=== PATIENT | female | born 1985 | race Caucasian/White ===

== ENCOUNTER 2021-04-16 10:07 | Inpatient (IN) ==
[2021-04-16] MEDS ORDERED: Ringers Solution, Lactated 1,000 ML IVC ONE (10:41)
[2021-04-16] MEDS ORDERED: Metoclopramide 10 MG/2 ML VIAL IVP ONE (10:41)
[2021-04-16] MEDS ORDERED: CeFAZolin 2,000MG/50ML DUPLEX 2,000 MG/50 ML BAG IVPB ONE (10:41)
[2021-04-16] MEDS ORDERED: Oxytocin 20 units/ LR 1000 mL 20 UNIT/1,000 ML BAG IVC ONE ×2 (10:41→15:18)
[2021-04-16] MEDS ORDERED: Famotidine 20 MG/2 ML VIAL IVP ONE (10:41)
[2021-04-16] MEDS ORDERED: Ringers Solution, Lactated 1,000 ML IVC SCH (10:45)
[2021-04-16] MEDS ORDERED: Azithromycin 500 MG in 0.9 % Sodium Chloride 250 ML IVPB ONE (10:45)
[2021-04-16] MEDS ORDERED: Ondansetron 4 MG/2 ML VIAL IVP PRN ×3 (10:45→15:55)
[2021-04-16] MEDS ORDERED: Naloxone 0.4 MG/ML INJ IVP PRN (10:45)
[2021-04-16] MEDS ORDERED: *HR* FentaNYL (PF) 100 MCG/2 ML VIAL ONE (11:18)
[2021-04-16] MEDS ORDERED: Ondansetron 4 MG/2 ML VIAL ONE (11:18)
[2021-04-16] MEDS ORDERED: *HR* Morphine Sulfate/PF 10 MG/10 ML AMPUL ONE (11:18)
[2021-04-16] MEDS ORDERED: EPHEDrine 50 MG/ML VIAL ONE (11:18)
[2021-04-16] MEDS ORDERED: Acetaminophen IV 1,000 MG/100 ML BAG IVPB ONE (11:22)
[2021-04-16 11:35] LABS: Basophils % 0.2 %; Eosinophils # 0.2 K/mcL (0.0-0.6); Eosinophils % 1.6 %; Hematocrit 35.4 % (35.3-44.9); Hemoglobin 11.4 g/dL (11.5-15.4); Immature Granulocytes % 1.1 % (0-4); Lymphocytes # 1.2 K/mcL (0.6-4.6); Lymphocytes % 13.2 %; Mean Corpuscular HGB Conc 32.2 g/dL (31.6-35.5); Mean Corpuscular Hemoglobin 29.8 pg (28.0-33.3); Mean Corpuscular Volume 92.4 fL (83.0-100.0); Mean Platelet Volume 10.5 fL (9.4-12.4); Monocytes # 0.5 K/mcL (0.0-1.3); Monocytes % 5.3 %; Neutrophils # 7.2 K/mcL (1.6-8.9); Platelet Count 238 K/mcL (140-400); Red Blood Count 3.83 M/mcL (3.82-4.97); Red Cell Distribution Width 14.4 % (11.5-14.5); Segmented Neutrophils % 78.6 %; White Blood Count 9.1 K/mcL (4.3-11.1)
[2021-04-16] MEDS ORDERED: Methylergonovine 0.2 MG/ML AMPUL IM ONE (11:41)
[2021-04-16] MEDS ORDERED: *HR* HYDROmorphone PF 0.5 MG/0.5 ML SYRINGE IVP PRN (11:41)
[2021-04-16] MEDS ORDERED: *HR* OxyCODONE Immed Rel 5 MG TABLET PO PRN ×2 (11:41→13:33)
[2021-04-16 11:43] LABS: Amphetamine Screen,Urine Negative ng/mL (Cutoff=1000); Barbiturate Screen,Urine Negative ng/mL (Cutoff=200); Benzodiazepines Screen,Urine Negative ng/mL (Cutoff=200); Cannabinoid Screen,Urine Negative ng/mL (Cutoff = 50); Cocaine Screen,Urine Negative ng/mL (Cutoff= 300); Opiate Screen,Urine Negative ng/mL (Cutoff=300); Phencyclidine Screen,Urine Negative ng/mL (Cutoff=25)
[2021-04-16] MEDS ORDERED: Lidocaine -MPF 2% 5 ML VIAL ONE (12:06)
[2021-04-16] MEDS ORDERED: Ringers Solution, Lactated 1,000 ML ONE ×2 (12:28→20:26)
[2021-04-16] MEDS ORDERED: Ketorolac 30 MG/ML VIAL ONE (12:57)
[2021-04-16] MEDS ORDERED: Oxytocin 20 units/ LR 1000 mL 20 UNIT/1,000 ML BAG IVC SCH (15:55)
[2021-04-16] MEDS ORDERED: Sennosides 8.6 MG TABLET PO PRN (15:55)
[2021-04-16] MEDS ORDERED: Metoclopramide 10 MG/2 ML VIAL IVP PRN (15:55)
[2021-04-16] MEDS ORDERED: Simethicone 80 MG TAB.CHEW PO PRN (15:55)
[2021-04-16] MEDS ORDERED: Ibuprofen 600 MG TABLET PO SCH (18:00)
[2021-04-16] MEDS ORDERED: Acetaminophen 325 MG TABLET PO SCH (18:00)
[2021-04-16] MEDS: Ibuprofen 600 MG TABLET PO PRN (18:11)
[2021-04-17] MEDS: Ibuprofen 600 MG TABLET PO PRN ×4 (02:00→20:32)
[2021-04-17 04:03] LABS: Basophils % 0.1 %; Eosinophils % 0.2 %; Hematocrit 32.7 % (35.3-44.9); Hemoglobin 10.4 g/dL (11.5-15.4); Immature Granulocytes % 0.8 % (0-4); Lymphocytes # 1.4 K/mcL (0.6-4.6); Lymphocytes % 9.6 %; Mean Corpuscular HGB Conc 31.8 g/dL (31.6-35.5); Mean Corpuscular Hemoglobin 29.7 pg (28.0-33.3); Mean Corpuscular Volume 93.4 fL (83.0-100.0); Mean Platelet Volume 10.1 fL (9.4-12.4); Monocytes % 6.5 %; Platelet Count 226 K/mcL (140-400); Red Cell Distribution Width 14.5 % (11.5-14.5); Segmented Neutrophils % 82.8 %
[2021-04-17 04:05] LABS: Neutrophils # 12.2 K/mcL (1.6-8.9); White Blood Count 14.7 K/mcL (4.3-11.1)
[2021-04-17] MEDS: Prenatal Vit/FA 1 EACH TABLET PO SCH (08:20)
[2021-04-17] MEDS ORDERED: Acetaminophen 325 MG TABLET PO PRN (11:10)
[2021-04-17] MEDS: Acetaminophen 325 MG TABLET PO PRN ×2 (11:52→18:41)
[2021-04-18] MEDS: Acetaminophen 325 MG TABLET PO PRN ×2 (01:34→08:48)
[2021-04-18] MEDS: Ibuprofen 600 MG TABLET PO PRN (02:41)
[2021-04-18 08:07] VITALS: BP 119/79
[2021-04-18] MEDS: *HR* OxyCODONE/APAP 5/325 TABLET PO PRN ×2 (08:46→14:13)
[2021-04-18] MEDS: Prenatal Vit/FA 1 EACH TABLET PO SCH (08:46)
== END 2021-04-18 15:00 | disposition home or self-care (01) | DRG 787 ==
LOC: 1NENULAB 10:07 → 1NENUOBS 15:37
PROVIDERS: ADMIT Obstetrics & Gynecology; ATTEND Obstetrics & Gynecology